=== PATIENT | male | born 1950 | race African-American/Black ===

== ENCOUNTER 2019-04-30 09:26 | Inpatient (IN) ==
[~2019-04-30 09:26] MED LIST: *HR* Etomidate 20 MG/10 ML AMPUL IVP ONE; *HR* Rocuronium Bromide 100 MG/10 ML VIAL IVC ONE
[2019-04-30] MEDS ORDERED: methylPREDNISolone 125 MG/2 ML VIAL IVP ONE (09:36)
[2019-04-30] MEDS ORDERED: Ipratropium/Albuterol Neb 3 ML IH ONE (09:36)
[2019-04-30] MEDS ORDERED: Ipratropium/Albuterol Neb 3 ML ONE (09:37)
[2019-04-30] MEDS ORDERED: *HR* LORazepam 2 MG/ML VIAL IVP ONE (09:39)
[2019-04-30] MEDS ORDERED: *HR* Labetalol 20 MG/4 ML SYRINGE IVP ONE (09:39)
--- NOTE | 2019-04-30 09:43 | Emergency Department Note ---
Disposition Clinical Impression: Hypertensive emergency, Pulmonary edema, Acute respiratory failure with hypoxia and hypercapnia Disposition: Admitted As Inpatient Condition: Critical Time of Disposition: 11:37 SOB HPI - General Chief Complaint: ED Shortness of Breath/Dyspnea Stated Complaint: ODILIA Time Seen by Provider: 04/30/19 09:29 Source: family, EMS Limitations: no limitations - History of Present Illness Patient is 69-year-old male presents to the emergency room via EMS for shortness of breath and apparently started this morning. The patient does have a history of asthma, history of CVA in the past. The patient does not wear oxygen at home. Patient denies any current pain, denies any headache chest pain or abdominal pain. The patient denies any back pain. The patient denies any recent other illness. The patient denies any leg swelling. However given the patient's dyspnea and significant respiratory distress, history of present illness and review of systems was extremely limited. - Related Data Home Medications Medication Instructions Recorded Confirmed Clopidogrel [Plavix] 75 mg PO DAILY 02/11/16 03/02/16 Amlodipine [Amlodipine Besylate] 10 mg PO DAILY 03/02/16 03/02/16 Previous Rx's Medication Instructions Recorded OxyCODONE/APAP 5/325 [Percocet 1 each PO Q6HR PRN #10 tablet 03/03/16 5/325 MG] Allergies Allergy/AdvReac Type Severity Reaction Status Date / Time No Known Allergies Allergy Verified 10/22/15 19:58 Review of Systems: As mentioned per HPI Limitations: ROS unobtainable due to patients medical condition (Secondary to significant shortness of breath and current critical history) Past Medical History - Past Medical History Medical history: Reports: asthma, hyperlipidemia, TIA, other Surgical history: Reports: carotid endarterectomy Psychiatric history: Reports: no psych history - Social History Smoking Status: Current every day smoker Smokeless Tobacco Status: No Alcohol use: Reports: heavy Drug use: Reports: marijuana Physical Exam PHYSICAL EXAM Constitutional: Well developed, Well nourished, moderate respiratory distress, Non-toxic appearance. HENT: Normocephalic, Atraumatic, Bilateral external ears normal, Oropharynx moist, No oral exudates, Nose normal. Neck- Normal range of motion, No tenderness, Supple. Eyes: PERRL, EOMI, Conjunctiva normal,. Cardiovascular: Tachycardic rate and regular rhythm without clicks, rubs, gallops or murmurs. Respiratory: Patient does have diminished breath sounds bilaterally, patient does have expiratory wheezes as well, there is evidence of scattered rhonchi on examination as well. Moderate respiratory distress is noted on examination. GI: Soft, nontender, no evidence of guarding or peritoneal signs. Bowel sounds are active. Musculoskeletal: Good range of motion in all major joints. No tenderness to palpation or major deformities noted. + Overall equal strength noted to the upper and lower extremities Integument: Diaphoretic, No erythema, No rash. No edema. Neurologic: Alert, Normal sensory function, No focal deficits noted. CN II-XII grossly intact. - General Limitations: no limitations General appearance: alert, in distress Course Vital Signs Temperature 97.6 F 04/30/19 09:31 Pulse Rate 126 04/30/19 09:31 Respiratory Rate 30 04/30/19 09:31 Blood Pressure 224/160 04/30/19 09:31 O2 Sat by Pulse Oximetry 88 04/30/19 09:31 Temperature 97.6 F 04/30/19 09:31 Pulse Rate 97 04/30/19 11:25 Respiratory Rate 20 04/30/19 11:31 Blood Pressure 193/149 04/30/19 11:25 O2 Sat by Pulse Oximetry 98 04/30/19 11:31 Oxygen Delivery Oxygen Delivery Ventilator Procedures - Intubation sedative: Etomidate paralytic: Rocuronium Laryngoscope: Jackson ET Tube Size: 8 ET Tube Uncuffed: Yes Tube Secured Depth (cm): 23 Tube Placement Confirmation: visualized tube passing through cords, equal breath sounds bilaterally, no breath sounds over epigastrium, confirmation by capnometry Patient Tolerated Procedure: well Shortness of Breath/Dyspnea - [facility] Narrative Medical decision making narrative: Patient did have EKG that showed evidence of sinus tachycardia 136 beats a minute, do not appreciate significant ST elevation or depression on EKG however there is significant artifact seen on EKG as well. MD and QT intervals do appear to be within normal limits. Interpreted by myself. Patient initially was tried on BiPAP, however he did fail this. The patient was given Ativan as well as labetalol here in the emergency room as well as magn esium. The patient does have significant hypertension arrival. I will further try to manage this hypertension, patient possibly could have hypertensive emergency with pulmonary edema. Patient did have a stat x-ray ordered as well as well as ABG. Patient had an ABG that showed evidence of significant hypoxia. The patient also has hypercarbia. The patient also is showing significant metabolic acidosis. Patient at this point in time was not doing well with the BiPAP therapy. The patient did receive IV labetalol. This did help his blood pressure significantly. The patient however I felt was significantly hypercarbic and that BiPAP therapy would not bridge this individual. The patient at this point in time was intubated. Patient was intubated with 60 mg of ocular name and 20 mg of etomidate. An ET tube was placed at 23 cm at the lip. A chest x-ray showed that the tube did need to be advanced however was otherwise in appropriate position. Patient's overall chest x-ray I believe shows evidence of pulmonary edema, a pneumonia however cannot be excluded. However given the patient's symptoms, not taking his blood pressure medications as well as his significant hypotension on arrival I felt the patient had more of a hypertensive emergency with pulmonary edema that was otherwise asymmetric. The patient after intubation did have an episode of bradycardia, his blood pressure also went more to a hypertensive state. The patient was started on IV fluids. However the patient proceeded to lose a pulse briefly here in the emergency room, CPR was instituted, within 3 minutes and first pulse check the patient had a pulse. The patient did receive 1 of epinephrine. The patient at this time has remained otherwise stable here in the emergency room, his blood pressure has started elevated, patient was placed on propofol here in the emergency room. Patient was also given vancomycin and Zosyn for possible pneumonia however I feel that this is more of a pulmonary edema type situation. The patient was also given IV Lasix. The case was discussed in detail with the furnace setter. The patient at this point in time was admitted to the ICU in otherwise critical but stable condition. I discussed the case with family on multiple occasions here in the emergency room as well. At this time the patient will be admitted to the ICU in critical condition. CRITICAL CARE TIME OF 65 MINUTES PERFORMING THIS INDIVIDUAL OUTSIDE OF SEPARATELY BILLABLE PROCEDURES. THIS INCLUDES BEDSIDE EVALUATION, INTERPRETATION OF EKG AND LAB TESTS AND CONSULTATIONS. Final impression 1. Hypertensive emergency 2. Acute respiratory failure with hypercarbia and hypoxia 3. Pulmonary edema - Lab Data Result diagrams: 04/30/19 09:33 07/17/19 09:33 Lab Results 04/30/19 04/30/19 04/30/19 Range/Units 09:33 09:33 09:33 WBC 5.1 (4.3-11.1) K/mcL RBC 4.95 (4.19-5.50) M/mcL Hgb 14.3 (12.9-16.9) g/dL Hct 47.0 (37.5-50.1) % MCV 94.9 (83.0-100.0) fL MCH 28.9 (28.0-33.3) pg MCHC 30.4 L (31.6-35.5) g/dL RDW 14.4 (11.5-14.5) % Plt Count 288 (140-400) K/mcL MPV 9.5 (9.4-12.4) fL Immature Gran % 0.4 (0-4) % Seg Neutrophils % 37.7 % Lymphocytes % 42.6 % Monocytes % 16.2 % Eosinophils % 2.3 % Basophils % 0.8 % Neutrophils # 1.9 (1.6-8.9) K/mcL Lymphocytes # 2.2 (0.6-4.6) K/mcL Monocytes # 0.8 (0.0-1.3) K/mcL Eosinophils # 0.1 (0.0-0.6) K/mcL Basophils # 0.0 (0.0-0.2) K/mcL Sample Site ABG pH (7.32-7.45) pH Units ABG pCO2 (35-45) mmHg ABG pO2 (85-104) mmHg ABG HCO3 (21-27) mEq/L ABG Total CO2 (20-26) mEq/L ABG O2 Saturation (95-98) % ABG Base Excess (-2 to 3) mEq/L Kain Test Respiration Rate O2 Delivery Device Blood Gas Modality Inspired O2 (1-15=lpm [id number]=%) Tidal Volume cc PEEP cm H2O Sodium 137 (136-145) mEq/L Potassium 3.8 (3.5-5.1) mEq/L Chloride 100 (98-107) mEq/L Carbon Dioxide 30 H (23-29) mEq/L BUN 17 (8-23) mg/dL Creatinine 1.04 (0.70-1.30) mg/dL Est GFR ( Amer) > 60 (> 60) Est GFR (Non-Af Amer) > 60 (> 60) BUN/Creatinine Ratio 16 (6-26) Glucose 192 H (70-105) mg/dL Calculated Osmolality 291 (280-300) Lactic Acid 2.0 (0.5-2.2) mmol/L Calcium 9.0 (8.6-10.3) mg/dL Troponin I 0.03 (< 0.04) ng/mL B-Natriuretic Peptide (Less than 100) pg/mL Person Notif of Crit 04/30/19 04/30/19 04/30/19 Range/Units 09:33 09:52 10:34 WBC (4.3-11.1) K/mcL RBC (4.19-5.50) M/mcL Hgb (12.9-16.9) g/dL Hct (37.5-50.1) % MCV (83.0-100.0) fL MCH (28.0-33.3) pg MCHC (31.6-35.5) g/dL RDW (11.5-14.5) % Plt Count (140-400) K/mcL MPV (9.4-12.4) fL Immature Gran % (0-4) % Seg Neutrophils % % Lymphocytes % % Monocytes % % Eosinophils % % Basophils % % Neutrophils # (1.6-8.9) K/mcL Lymphocytes # (0.6-4.6) K/mcL Monocytes # (0.0-1.3) K/mcL Eosinophils # (0.0-0.6) K/mcL Basophils # (0.0-0.2) K/mcL Sample Site R Radial ABG pH 7.00 L* 7.22 L D (7.32-7.45) pH Units ABG pCO2 122 H* 83 H* D (35-45) mmHg ABG pO2 85 289 H D (85-104) mmHg ABG HCO3 30 H 34 H (21-27) mEq/L ABG Total CO2 34 H 36 H (20-26) mEq/L ABG O2 Saturation 88 L 100 H (95-98) % ABG Base Excess -6 L 3 (-2 to 3) mEq/L Kain Test N/A Respiration Rate 20 O2 Delivery Device AeroMask Adult Vent Blood Gas Modality ASSIST CONTROL Inspired O2 60.0 100.0 (1-15=lpm [id number]=%) Tidal Volume 500 cc PEEP 0 cm H2O Sodium (136-145) mEq/L Potassium (3.5-5.1) mEq/L Chloride (98-107) mEq/L Carbon Dioxide (23-29) mEq/L BUN (8-23) mg/dL Creatinine (0.70-1.30) mg/dL Est GFR ( Amer) (> 60) Est GFR (Non-Af Amer) (> 60) BUN/Creatinine Ratio (6-26) Glucose (70-105) mg/dL Calculated Osmolality (280-300) Lactic Acid (0.5-2.2) mmol/L Calcium (8.6-10.3) mg/dL Troponin I (< 0.04) ng/mL B-Natriuretic Peptide 1071 H (Less than 100) pg/mL Person Notif of Crit dr prime dr xie Critical Care Time Critical Care Time: Yes Total Critical Care Time: 65 Attestation: Please see my note
[2019-04-30] MEDS: Furosemide 40 MG/4 ML VIAL IVP ONE ×2 (09:46→11:22)
[2019-04-30 10:04] LABS: ABG Base Excess -6 mEq/L (-2 to 3); ABG HCO3 30 mEq/L (21-27); ABG Oxygen Saturation 88 % (95-98); ABG PCO2 122 mmHg (35-45); ABG PO2 85 mmHg (85-104); ABG TCO2 34 mEq/L (20-26)
[2019-04-30] MEDS ORDERED: *HR* Etomidate 40 MG/20 ML VIAL IVP ONE (10:09)
[2019-04-30] MEDS ORDERED: *HR* Rocuronium Bromide 50 MG/5 ML VIAL IVP ONE (10:09)
[2019-04-30 10:18] LABS: Basophils % 0.8 %; Eosinophils # 0.1 K/mcL (0.0-0.6); Eosinophils % 2.3 %; Hemoglobin 14.3 g/dL (12.9-16.9); Immature Granulocytes % 0.4 % (0-4); Lymphocytes # 2.2 K/mcL (0.6-4.6); Lymphocytes % 42.6 %; Mean Corpuscular HGB Conc 30.4 g/dL (31.6-35.5); Mean Corpuscular Hemoglobin 28.9 pg (28.0-33.3); Mean Corpuscular Volume 94.9 fL (83.0-100.0); Mean Platelet Volume 9.5 fL (9.4-12.4); Monocytes # 0.8 K/mcL (0.0-1.3); Monocytes % 16.2 %; Neutrophils # 1.9 K/mcL (1.6-8.9); Platelet Count 288 K/mcL (140-400); Red Blood Count 4.95 M/mcL (4.19-5.50); Red Cell Distribution Width 14.4 % (11.5-14.5); Segmented Neutrophils % 37.7 %; White Blood Count 5.1 K/mcL (4.3-11.1)
[2019-04-30] MEDS ORDERED: 0.9 % Sodium Chloride 1,000 ML ONE (10:19)
[2019-04-30] MEDS ORDERED: *HR* Norepinephrine 4 MG/4 ML VIAL IVC ONE ×2 (10:23→15:07)
[2019-04-30] MEDS ORDERED: 0.9 % Sodium Chloride 250 ML ONE (10:23)
[2019-04-30 10:36] LABS: BUN/Creatinine Ratio 16 (6-26); Blood Urea Nitrogen 17 mg/dL (8-23); Carbon Dioxide 30 mEq/L (23-29); Chloride 100 mEq/L (98-107); Glucose 192 mg/dL (70-105); Osmolality,Calculated 291 (280-300); Potassium 3.8 mEq/L (3.5-5.1); Sodium 137 mEq/L (136-145); eGFR For African Americans > 60 (> 60); eGFR For Non-African Americans > 60 (> 60)
[2019-04-30 10:37] LABS: Troponin I 0.03 ng/mL (< 0.04)
[2019-04-30 10:39] LABS: ABG Base Excess 3 mEq/L (-2 to 3); ABG HCO3 34 mEq/L (21-27); ABG Oxygen Saturation 100 % (95-98); ABG PCO2 83 mmHg (35-45); ABG PH 7.22 pH Units (7.32-7.45); ABG PO2 289 mmHg (85-104); ABG TCO2 36 mEq/L (20-26); Blood Gas Modality ASSIST CONTROL; Blood Gas PEEP 0 cm H2O; Blood Gas VT 500 cc
[2019-04-30] MEDS ORDERED: *HR* Propofol 500 MG/50 ML BOTTLE IVP ONE (11:28)
[2019-04-30] MEDS ORDERED: Piperacillin/Tazobactam 3.375 GM in 0.9 % Sodium Chloride Mini Bag 100 ML IVPB ONE (11:31)
[2019-04-30] MEDS ORDERED: *HR* FentaNYL (PF) 100 MCG/2 ML VIAL ONE (11:49)
[2019-04-30] MEDS ORDERED: Naloxone 0.4 MG/ML INJ IVP PRN (11:50)
[2019-04-30] MEDS ORDERED: *HR* FentaNYL (PF) 100 MCG/2 ML VIAL IVP ONE (11:54)
--- NOTE | 2019-04-30 11:57 | Pulmonology History & Physical ---
Date of Encounter: 04/30/19 Time of Encounter: 11:57 History of Present Illness HPI: Mr. Hernández is a 69 year old male Past Med Surg Social Fam HX - Past Medical History Medical history: asthma, hyperlipidemia, TIA, other Additional medical history: SMOKER Psychiatric history: no psych history - Past Surgical History Surgical History: carotid endarterectomy - Social History Smoking Status: Current every day smoker Smokeless Tobacco Status: No Alcohol use: heavy Drug use: marijuana Medications and Allergies Clopidogrel [Plavix] 75 mg PO DAILY 02/11/16 [History] Amlodipine [Amlodipine Besylate] 10 mg PO DAILY 03/02/16 [History] OxyCODONE/APAP 5/325 [Percocet 5/325 MG] 1 each PO Q6HR PRN #10 tablet 03/03/16 [Rx] Allergy/AdvReac Type Severity Reaction Status Date / Time No Known Allergies Allergy Verified 10/22/15 19:58 ROS unobtainable: due to endotracheal tube, due to mental status All Systems: The remainder of the systems were reviewed and are negative Physical Examination Vital Signs: Vital Signs, Last 4 Hours Temp Pulse Resp BP Pulse Ox 04/30/19 11:31 20 98 04/30/19 11:25 97 20 193/149 98 04/30/19 10:40 86 180/123 100 04/30/19 10:33 93 185/123 04/30/19 10:28 89 130/75 04/30/19 10:12 20 100 04/30/19 09:55 30 83 04/30/19 09:51 107 123/93 04/30/19 09:50 122/100 04/30/19 09:36 224/160 04/30/19 09:31 97.6 F 126 30 224/160 88 Results - Laboratory Findings CBC and BMP: 04/30/19 09:33 04/30/19 09:33 ABG ABG pH 7.22 pH Units (7.32-7.45) L D 04/30/19 10:34 ABG pCO2 83 mmHg (35-45) H* D 04/30/19 10:34 ABG pO2 289 mmHg (85-104) H D 04/30/19 10:34 ABG O2 Saturation 100 % (95-98) H 04/30/19 10:34 Abnormal lab findings: Abnormal lab results MCHC 30.4 g/dL (31.6-35.5) L 04/30/19 09:33 ABG pH 7.22 pH Units (7.32-7.45) L D 04/30/19 10:34 ABG pCO2 83 mmHg (35-45) H* D 04/30/19 10:34 ABG pO2 289 mmHg (85-104) H D 04/30/19 10:34 ABG HCO3 34 mEq/L (21-27) H 04/30/19 10:34 ABG Total CO2 36 mEq/L (20-26) H 04/30/19 10:34 ABG O2 Saturation 100 % (95-98) H 04/30/19 10:34 ABG Base Excess -6 mEq/L (-2 to 3) L 04/30/19 09:52 Carbon Dioxide 30 mEq/L (23-29) H 04/30/19 09:33 Glucose 192 mg/dL (70-105) H 04/30/19 09:33 B-Natriuretic Peptide 1071 pg/mL (Less than 100) H 04/30/19 09:33
[2019-04-30] MEDS ORDERED: FentaNYL (PF) 1,000 MCG in 0.9 % Sodium Chloride 80 ML IVC SCH (12:00)
--- NOTE | 2019-04-30 12:21 | Pulmonology History & Physical ---
<Yola Mcdonough R - Last Filed: 04/30/19 16:42> Date of Encounter: 04/30/19 Time of Encounter: 12:19 Assessment and Plan (1) Sudden cardiac arrest Current visit: Yes Status: Acute Pt had episode of bradycardia and lost pulses in the ED after intubation One round of CPR was performed with epinephrine given Pt had ROSC and regained consciousness shortly thereafter Will obtain echo and repeat labwork including troponin, mag, phos, procal and lactic EKG did not show any signs of cardiac ischemia Likely secondary to his severe acidosis and from vagal stimulation during intubation (2) Hypertensive emergency Current visit: Yes Status: Acute Initial BP 224/160 CXR shows pulmonary edema Pt intubated due to severe acidosis with pH of 7, CO2 122, pO2 85 and HCO3 30 on 60%FiO2 Repeat ABG 30 minutes later improving with pH 7.22, CO2 83, pO2 289 and HCO3 34 Lasix given in ED for pulmonary edema Vanc and Zosyn ordered for pneumonia coverage but were not given due to no notable PNA on CXR, lack of symptoms and a negative lactic x2 with negative procal Pt given 25mg of Labetalol in the ED which caused his BP to drop to 165/121 Target BP is to maintain systolic below 160 for the next 24 hours Pt able to tolerate CPAP once woke up from sedation Extubated without difficulty and continues to do well off the vent (3) Acute respiratory failure with hypoxia and hypercapnia Current visit: Yes Status: Acute Likely secondary to pulmonary edema from HTN emergency Treatment as above (4) Pulmonary edema Current visit: Yes Status: Acute Likely secondary to HTN emergency Treatment as above Qualifiers: Chronicity: acute Qualified Code(s): J81.0 - Acute pulmonary edema (5) DVT prophylaxis Current visit: Yes Status: Acute EPCDs History of Present Illness HPI: Mr. Hernández is a 69 year old male who presented to the ED today with the complaint of ODILIA. He has a PMHx of asthma and TIA. On arrival he was found to be in severe respiratory distress and his initial BP was 224/160. The patient had a trial of BiPAP to help with his respiratory distress but ABG showed significant acidosis with hypoxia and hypercarbia and it was felt that BiPAP would not completely correct his degree of respiratory distress. The patient was then intubated without any significant difficulties. Shortly after intubation the patient became bradycardic and subsequently lost pulses. One round of CPR was performed with epinephrine given and once this round had stopped the patient had pulses again. Chest x-ray demonstrated severe pulmonary edema. Other significant labs include a BNP of 1071. The patient arrives to the ICU in stable condition and is waking up and following commands at this time. Past Med Surg Social Fam HX - Past Medical History Source: old records reviewed Medical history: asthma, hyperlipidemia, TIA, other Additional medical history: SMOKER Psychiatric history: no psych history - Past Surgical History Surgical History: carotid endarterectomy - Social History Smoking Status: Current every day smoker Smokeless Tobacco Status: No Alcohol use: heavy Drug use: marijuana Medications and Allergies No Known Home Drugs 05/01/19 [History] Allergy/AdvReac Type Severity Reaction Status Date / Time No Known Allergies Allergy Verified 05/01/19 08:11 ROS unobtainable: due to endotracheal tube All Systems: The remainder of the systems were reviewed and are negative Physical Examination Vital Signs: Vital Signs, Last 4 Hours Temp Pulse Resp BP Pulse Ox 04/30/19 12:00 97.7 F 86 21 165/121 98 04/30/19 11:31 20 98 04/30/19 11:25 97 20 193/149 98 04/30/19 10:40 86 180/123 100 04/30/19 10:33 93 185/123 04/30/19 10:28 89 130/75 04/30/19 10:12 20 100 04/30/19 09:55 30 83 04/30/19 09:51 107 123/93 04/30/19 09:50 122/100 04/30/19 09:36 224/160 04/30/19 09:31 97.6 F 126 30 224/160 88 General appearance: other (mildly sedated, follows commands) Eyes: nonicteric Effort: normal Auscultation: bilateral: rales Cardiovascular: regular rate and rhythm Gastrointestinal: soft, non-tender Integumentary: normal Extremities: no edema, pink and warm, pulses normal pupils equal and round Results - Laboratory Findings CBC and BMP: 04/30/19 09:33 04/30/19 09:33 ABG ABG pH 7.22 pH Units (7.32-7.45) L D 04/30/19 10:34 ABG pCO2 83 mmHg (35-45) H* D 04/30/19 10:34 ABG pO2 289 mmHg (85-104) H D 04/30/19 10:34 ABG O2 Saturation 100 % (95-98) H 04/30/19 10:34 Abnormal lab findings: Abnormal lab results MCHC 30.4 g/dL (31.6-35.5) L 04/30/19 09:33 ABG pH 7.22 pH Units (7.32-7.45) L D 04/30/19 10:34 ABG pCO2 83 mmHg (35-45) H* D 04/30/19 10:34 ABG pO2 289 mmHg (85-104) H D 04/30/19 10:34 ABG HCO3 34 mEq/L (21-27) H 04/30/19 10:34 ABG Total CO2 36 mEq/L (20-26) H 04/30/19 10:34 ABG O2 Saturation 100 % (95-98) H 04/30/19 10:34 ABG Base Excess -6 mEq/L (-2 to 3) L 04/30/19 09:52 Carbon Dioxide 30 mEq/L (23-29) H 04/30/19 09:33 Glucose 192 mg/dL (70-105) H 04/30/19 09:33 POC Glucose 138 mg/dL (70-99) H 04/30/19 11:47 B-Natriuretic Peptide 1071 pg/mL (Less than 100) H 04/30/19 09:33 <Solitario Evans M - Last Filed: 05/02/19 23:15> Date of Encounter: 04/30/19 History of Present Illness HPI: Mr. Hernández is a 69 year old male All Systems: The remainder of the systems were reviewed and are negative Physical Examination Vital Signs: Vital Signs, Last 4 Hours Temp Pulse Resp BP Pulse Ox 04/30/19 15:35 18 94 04/30/19 15:05 103 18 125/100 92 04/30/19 15:00 93 18 125/100 92 04/30/19 14:00 92 20 110/80 100 04/30/19 13:00 91 20 65/54 100 04/30/19 12:00 97.7 F 92 20 165/121 99 Results - Laboratory Findings CBC and BMP: 05/01/19 04:39 05/01/19 04:39 ABG ABG pH 7.32 pH Units (7.32-7.45) 04/30/19 12:35 ABG pCO2 56 mmHg (35-45) H D 04/30/19 12:35 ABG pO2 80 mmHg (85-104) L D 04/30/19 12:35 ABG O2 Saturation 94 % (95-98) L 04/30/19 12:35 Abnormal lab findings: Abnormal lab results MCHC 30.4 g/dL (31.6-35.5) L 04/30/19 09:33 ABG pH 7.22 pH Units (7.32-7.45) L D 04/30/19 10:34 ABG pCO2 56 mmHg (35-45) H D 04/30/19 12:35 ABG pO2 80 mmHg (85-104) L D 04/30/19 12:35 ABG HCO3 29 mEq/L (21-27) H 04/30/19 12:35 ABG Total CO2 31 mEq/L (20-26) H 04/30/19 12:35 ABG O2 Saturation 94 % (95-98) L 04/30/19 12:35 ABG Base Excess -6 mEq/L (-2 to 3) L 04/30/19 09:52 Carbon Dioxide 30 mEq/L (23-29) H 04/30/19 09:33 Glucose 192 mg/dL (70-105) H 04/30/19 09:33 POC Glucose 138 mg/dL (70-99) H 04/30/19 11:47 Phosphorus 4.7 mg/dL (2.7-4.5) H 04/30/19 09:33 B-Natriuretic Peptide 1071 pg/mL (Less than 100) H 04/30/19 09:33 Globulin 5.0 g/dL (2.4-3.5) H 04/30/19 09:33 Albumin/Globulin Ratio 0.7 (1.1-2.2) L 04/30/19 09:33 - Attending Attestation I examined this patient and my medical decision-making was reviewed with the Resident Physician. I agree with the documented findings, disposition and treatment plan as described except to the extent set forth below. Patient seen and examined. I was called by infectious disease physician regarding this patient and patient was intubated and he had cardiac arrest after intubation. Labs, radiology, chart personally reviewed. 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 Pulmonary: Acceptable oxygenation and ventilation. Reviewed his ABG with some improvement in the respiratory acidosis. Family at the bedside and he has significant history of smoking that I think he could have AECOPD and he will be treated with bronchodilators and for AECOPD. I feel this patient can be extubated and I checked his vent setting and he has some evidence of PEEPi. I have told respiratory therapist to attempt SBT and if able to extubated, then that what we will do. Reviewed his CXR and has evidence of emphysema. He will need outpatie work up. He may need nicotine patch and obviously smoking cessation. Cardiovascular: Patient with hypertensive emergency and evidence of pulmonary edema. Will treat patient for his HTN and I suspect he has uncontrolled HTN. WIll target SBP around 160 . Will resume his home oral medication when able to eat. Patient will be on Cardene drip to control BP. GI: Nutrition per dietary and GI prophylaxis per routine Heme: DVT prophylaxis per routine ID: Stop all the antibiotics. This is most likely pulmonary edema. Renal; urine out put and renal function reviewed Endorcine: blood glucose is monitored Lines: all lines checked and no evidence of infections Skin: skin care to prevent pressure ulcers per nursing routine care Dispo: ICU for now. Code: Full. Prognosis.Fair and guarded and discussed with family at the bedside. I spent 60 min of Critical Care time with this patient. It involved decision making of high complexity to assess, manipulate, and support vital organ system failure and/or to prevent further life threatening deterioration of the patient's condition. The time involved in the performance of separately reportable procedures was not counted toward critical care time.
[2019-04-30] MEDS ORDERED: Artificial Tears SOLN 15 ML BOTTLE BOTH EYES PRN (12:31)
[2019-04-30 12:38] LABS: ABG Base Excess 1 mEq/L (-2 to 3); ABG HCO3 29 mEq/L (21-27); ABG Oxygen Saturation 94 % (95-98); ABG PCO2 56 mmHg (35-45); ABG PH 7.32 pH Units (7.32-7.45); ABG PO2 80 mmHg (85-104); ABG TCO2 31 mEq/L (20-26); Blood Gas PEEP 0 cm H2O; Blood Gas VT 500 cc
[2019-04-30] MEDS ORDERED: Haloperidol Lactate 5 MG/ML VIAL IM PRN (12:55)
[2019-04-30 13:32] LABS: Alanine Aminotransferase 12 Units/L (7-52); Albumin 3.7 g/dL (3.5-5.7); Albumin/Globulin Ratio 0.7 (1.1-2.2); Alkaline Phosphatase 71 Units/L (34-104); Aspartate Amino Transferase 24 Units/L (13-39); Bilirubin,Direct 0.1 mg/dL (0.0-0.2); Bilirubin,Indirect 0.4 mg/dL (0.0-1.2); Bilirubin,Total 0.5 mg/dL (0.3-1.0); Magnesium 1.8 mg/dL (1.6-2.6); Phosphorous 4.7 mg/dL (2.7-4.5); Total Protein 8.7 g/dL (6.4-8.9)
[2019-04-30] MEDS ORDERED: Aminoglycoside Consult 1 EACH MC ONE (14:01)
[2019-04-30] MEDS ORDERED: D5% in Water 250 ML IV BAG IV ONE (15:07)
[2019-04-30] MEDS ORDERED: *HR* EPINEPHrine 1 MG/10 ML SYRINGE IVP ONE (15:07)
[2019-04-30] MEDS ORDERED: Artificial Tears SOLN 15 ML BOTTLE BOTH EYES SCH (16:00)
[2019-04-30] MEDS: niCARdipine 20 MG in 0.9 % Sodium Chloride 192 ML IVC SCH ×4 (17:45→22:08)
[2019-04-30] MEDS ORDERED: Chlorhexidine Rinse 15 ML MOUTHWASH MM SCH (21:00)
[2019-04-30] MEDS ORDERED: Acetaminophen 325 MG TABLET PO PRN (22:13)
[2019-05-01 05:00] LABS: Hematocrit 40.3 % (37.5-50.1); Immature Granulocytes % 0.2 % (0-4); Lymphocytes # 0.5 K/mcL (0.6-4.6); Lymphocytes % 12.1 %; Mean Corpuscular HGB Conc 32.3 g/dL (31.6-35.5); Mean Corpuscular Hemoglobin 29.3 pg (28.0-33.3); Mean Corpuscular Volume 90.8 fL (83.0-100.0); Mean Platelet Volume 9.6 fL (9.4-12.4); Monocytes # 0.4 K/mcL (0.0-1.3); Monocytes % 9.7 %; Neutrophils # 3.2 K/mcL (1.6-8.9); Platelet Count 213 K/mcL (140-400); Red Blood Count 4.44 M/mcL (4.19-5.50); Red Cell Distribution Width 13.8 % (11.5-14.5); White Blood Count 4.1 K/mcL (4.3-11.1)
[2019-05-01] MEDS: niCARdipine 20 MG in 0.9 % Sodium Chloride 192 ML IVC SCH (05:02)
[2019-05-01 05:19] LABS: Alanine Aminotransferase 17 Units/L (7-52); Albumin 3.5 g/dL (3.5-5.7); Albumin/Globulin Ratio 0.9 (1.1-2.2); Alkaline Phosphatase 61 Units/L (34-104); Aspartate Amino Transferase 27 Units/L (13-39); BUN/Creatinine Ratio 22 (6-26); Bilirubin,Total 0.5 mg/dL (0.3-1.0); Blood Urea Nitrogen 19 mg/dL (8-23); Calcium 8.4 mg/dL (8.6-10.3); Carbon Dioxide 27 mEq/L (23-29); Chloride 99 mEq/L (98-107); Glucose 113 mg/dL (70-105); Osmolality,Calculated 281 (280-300); Potassium 3.9 mEq/L (3.5-5.1); Sodium 134 mEq/L (136-145); Total Protein 7.5 g/dL (6.4-8.9); eGFR For African Americans > 60 (> 60); eGFR For Non-African Americans > 60 (> 60)
--- NOTE | 2019-05-01 06:39 | Pulmonology Progress Note ---
<CeasarYola R - Last Filed: 05/01/19 10:40> Date of Encounter: 05/01/19 Time of Encounter: 06:39 Assessment and Plan (1) Sudden cardiac arrest Current Visit: Yes Status: Acute Pt had episode of bradycardia and lost pulses in the ED after intubation One round of CPR was performed with epinephrine given Pt had ROSC and regained consciousness shortly thereafter Will obtain echo and repeat labwork including troponin, mag, phos, procal and lactic EKG did not show any signs of acute cardiac ischemia Likely secondary to his severe acidosis and from vagal stimulation during intubation Echo report read 05/01 shows an EF of 40-45% with right wall motion abnormality and moderate MR. He does not have a previous echo on file (2) Hypertensive emergency Current Visit: Yes Status: Acute Initial BP 224/160 CXR shows pulmonary edema Pt intubated due to severe acidosis with pH of 7, CO2 122, pO2 85 and HCO3 30 on 60%FiO2 Repeat ABG 30 minutes later improving with pH 7.22, CO2 83, pO2 289 and HCO3 34 Lasix given in ED for pulmonary edema Vanc and Zosyn ordered for pneumonia coverage but were not given due to no notable PNA on CXR, lack of symptoms and a negative lactic x2 with negative procal Pt given 25mg of Labetalol in the ED which caused his BP to drop to 165/121 Target BP is to maintain systolic below 160 for the next 24 hours Pt able to tolerate CPAP once woke up from sedation Extubated without difficulty and continues to do well off the vent Cardene drip was added overnight to control BP and keep systolic below 160 Pt required very little cardene (2.5/hr) therefore we will restart home meds and DC the cardene drip PRN lopressor has been added due to the patients tachycardia 20mg lasix has been added for the pts pulmonary edema (3) Acute respiratory failure with hypoxia and hypercapnia Current Visit: Yes Status: Acute Likely secondary to pulmonary edema from HTN emergency Treatment as above (4) Pulmonary edema Current Visit: Yes Status: Acute Likely secondary to HTN emergency Treatment as above Qualifiers: Chronicity: acute Qualified Code(s): J81.0 - Acute pulmonary edema (5) Elevated troponin Current Visit: Yes Status: Acute Pt intial trop wnl After CPR pt had troponin of 0.1, followed by 0.06 No EKG changes consistent with cardiac ischemia Pt denies chest pain Likely secondary to CPR (6) COPD exacerbation Current Visit: Yes Status: Acute Pt with respiratory failure in ED Initially intubated but has tolerated extubation well overnight without need for supplemental oxygen 125mg IV solu-medrol given in ED Will continue steroid burst with 40mg prednison po qd for 5 days Duonebs ordered q4H prn (7) DVT prophylaxis Current Visit: Yes Status: Acute EPCDs Subjective Interval history: Pt tolerated extubation yesterday and bp remained below 160 with low dose cardene drip overnight. He did have 2 mildly elevated troponins but underwent one round of CPR in the ED and it is likely from this - pt denies chest pain and did not have EKG changes. Pt will be switched to his home dose of amlodipine with a prn order for lopressor due to his tachycardia. Pt will also have prn albuterol and a prednisone burst of 40mg po qd for 5 days for suspected COPD exacerbation. Pt has tolerated eating and will be transferred out of the ICU today. Spoke with admitting hospitalist Dr. Hui who was made aware of the patient's transfer. Objective PUL Vital signs: Last Vital Signs Temp 96.8 F L 05/01/19 02:55 Pulse 98 05/01/19 06:00 Resp 20 05/01/19 06:00 BP 140/91 05/01/19 06:00 Pulse Ox 95 05/01/19 06:00 General appearance: no acute distress, alert Eyes: nonicteric Effort: normal Auscultation: bilateral: wheezes Cardiovascular: regular rate and rhythm Gastrointestinal: soft, non-tender Integumentary: normal Extremities: no cyanosis, no edema, pink and warm, pulses normal normal mental status, non-focal exam, pupils equal and round mood appropriate, affect normal Results - Laboratory Findings CBC and BMP: 05/01/19 04:39 05/01/19 04:39 ABG ABG pH 7.32 pH Units (7.32-7.45) 04/30/19 12:35 ABG pCO2 56 mmHg (35-45) H D 04/30/19 12:35 ABG pO2 80 mmHg (85-104) L D 04/30/19 12:35 ABG O2 Saturation 94 % (95-98) L 04/30/19 12:35 Abnormal lab findings: Abnormal lab results WBC 4.1 K/mcL (4.3-11.1) L 05/01/19 04:39 MCHC 30.4 g/dL (31.6-35.5) L 04/30/19 09:33 Lymphocytes # 0.5 K/mcL (0.6-4.6) L 05/01/19 04:39 ABG pH 7.22 pH Units (7.32-7.45) L D 04/30/19 10:34 ABG pCO2 56 mmHg (35-45) H D 04/30/19 12:35 ABG pO2 80 mmHg (85-104) L D 04/30/19 12:35 ABG HCO3 29 mEq/L (21-27) H 04/30/19 12:35 ABG Total CO2 31 mEq/L (20-26) H 04/30/19 12:35 ABG O2 Saturation 94 % (95-98) L 04/30/19 12:35 ABG Base Excess -6 mEq/L (-2 to 3) L 04/30/19 09:52 Sodium 134 mEq/L (136-145) L 05/01/19 04:39 Carbon Dioxide 30 mEq/L (23-29) H 04/30/19 09:33 Glucose 113 mg/dL (70-105) H 05/01/19 04:39 POC Glucose 138 mg/dL (70-99) H 04/30/19 11:47 Calcium 8.4 mg/dL (8.6-10.3) L 05/01/19 04:39 Phosphorus 4.7 mg/dL (2.7-4.5) H 04/30/19 09:33 Troponin I 0.06 ng/mL (< 0.04) H* 04/30/19 21:53 B-Natriuretic Peptide 1071 pg/mL (Less than 100) H 04/30/19 09:33 Globulin 4.0 g/dL (2.4-3.5) H 05/01/19 04:39 Albumin/Globulin Ratio 0.9 (1.1-2.2) L 05/01/19 04:39 - Microbiology Findings Microbiology Findings: Microbiology, Last 48 Hours 04/30/19 10:47 Blood Culture - Preliminary Peripheral Venipuncture Culture is incubating and being continuously monitored for growth. Final report to follow. 04/30/19 09:33 Blood Culture - Preliminary Peripheral Venipuncture Culture is incubating and being continuously monitored for growth. Final report to follow. - Clinical Findings Intake & Output: Intake & Output 04/30/19 04/30/19 05/01/19 15:59 23:59 07:59 Intake Total 182 / 395 213 / 395 187 / 187 Output Total 1250 / 1250 Balance 182 / -855 -1037 / -855 187 / 187 Weight 67.9 kg Consult Discharge Plan - Plan Referrals: Kalyani Vidal, GRAIN DISTRIBUTOR [Primary Care Provider] - <Solitario Evans - Last Filed: 05/03/19 01:09> Date of Encounter: 05/01/19 Objective PUL Vital signs: Last Vital Signs Temp 98.2 F 05/01/19 07:35 Pulse 100 05/01/19 08:00 Resp 20 05/01/19 08:00 BP 149/103 05/01/19 08:00 Pulse Ox 95 05/01/19 08:00 Results - Laboratory Findings CBC and BMP: 05/01/19 04:39 05/01/19 04:39 ABG ABG pH 7.32 pH Units (7.32-7.45) 04/30/19 12:35 ABG pCO2 56 mmHg (35-45) H D 04/30/19 12:35 ABG pO2 80 mmHg (85-104) L D 04/30/19 12:35 ABG O2 Saturation 94 % (95-98) L 04/30/19 12:35 Abnormal lab findings: Abnormal lab results WBC 4.1 K/mcL (4.3-11.1) L 05/01/19 04:39 MCHC 30.4 g/dL (31.6-35.5) L 04/30/19 09:33 Lymphocytes # 0.5 K/mcL (0.6-4.6) L 05/01/19 04:39 ABG pH 7.22 pH Units (7.32-7.45) L D 04/30/19 10:34 ABG pCO2 56 mmHg (35-45) H D 04/30/19 12:35 ABG pO2 80 mmHg (85-104) L D 04/30/19 12:35 ABG HCO3 29 mEq/L (21-27) H 04/30/19 12:35 ABG Total CO2 31 mEq/L (20-26) H 04/30/19 12:35 ABG O2 Saturation 94 % (95-98) L 04/30/19 12:35 ABG Base Excess -6 mEq/L (-2 to 3) L 04/30/19 09:52 Sodium 134 mEq/L (136-145) L 05/01/19 04:39 Carbon Dioxide 30 mEq/L (23-29) H 04/30/19 09:33 Glucose 113 mg/dL (70-105) H 05/01/19 04:39 POC Glucose 138 mg/dL (70-99) H 04/30/19 11:47 Calcium 8.4 mg/dL (8.6-10.3) L 05/01/19 04:39 Phosphorus 4.7 mg/dL (2.7-4.5) H 04/30/19 09:33 Troponin I 0.06 ng/mL (< 0.04) H* 04/30/19 21:53 B-Natriuretic Peptide 1071 pg/mL (Less than 100) H 04/30/19 09:33 Globulin 4.0 g/dL (2.4-3.5) H 05/01/19 04:39 Albumin/Globulin Ratio 0.9 (1.1-2.2) L 05/01/19 04:39 - Microbiology Findings Microbiology Findings: Microbiology, Last 48 Hours 04/30/19 10:47 Blood Culture - Preliminary Peripheral Venipuncture Culture is incubating and being continuously monitored for growth. Final report to follow. 04/30/19 09:33 Blood Culture - Preliminary Peripheral Venipuncture Culture is incubating and being continuously monitored for growth. Final report to follow. - Clinical Findings Intake & Output: Intake & Output 04/30/19 05/01/19 05/01/19 23:59 07:59 15:59 Intake Total 213 / 395 237 / 597 360 / 597 Output Total 1250 / 1250 250 / 250 Balance -1037 / -855 -13 / 347 360 / 347 - Attending Attestation I examined this patient and my medical decision-making was reviewed with the Resident Physician. I agree with the documented findings, disposition and treatment plan as described except to the extent set forth below. Patient seen and examined. Labs, radiology, chart personally reviewed. Agree with resident's history and physical, assessment, plan with following comments: COUNTER PROFESSIONAL: Patient follows commands, Pulmonary: Acceptable oxygenation and ventilation and treat for AECOPD with systemic steroid and bronchodilators and he will need outpatient follow up and work up for COPD. He will benefit from pulm rehab. Cardiovascular: stable and BP is better now and cardiology is consult. BP needs to be controlled. GI: Nutrition per dietary and GI prophylaxis per routine Heme: DVT prophylaxis per routine ID: Continue antibiotics and plan to de-escalation Renal; urine out put and renal function reviewed. Start diuretic Endorcine: blood glucose is monitored Lines: all lines checked and no evidence of infections Skin: skin care to prevent pressure ulcers per nursing routine care Dispo:transfer to floor Code: Full. [email or web address] Discussed with family at the beside. Please call for any questions.
[2019-05-01] MEDS ORDERED: *HR* Metoprolol 5 MG/5 ML VIAL IVP PRN ×2 (07:23→10:09)
[2019-05-01] MEDS ORDERED: Ipratropium/Albuterol Neb 3 ML IH PRN ×2 (07:23→10:09)
[2019-05-01] MEDS ORDERED: amLODIPine 5 MG TABLET PO SCH (09:00)
[2019-05-01] MEDS ORDERED: predniSONE 20 MG TABLET PO SCH (09:00)
[2019-05-01] MEDS ORDERED: Budesonide/Formoterol 160/4.5 1 PUFF INH IH SCH (10:00)
[2019-05-01] MEDS ORDERED: Piperacillin/Tazobactam 3.375 GM in 0.9 % Sodium Chloride Mini Bag 100 ML IVPB ONE (10:09)
[2019-05-01] MEDS ORDERED: Naloxone 0.4 MG/ML INJ IVP PRN (10:09)
[2019-05-01] MEDS: Furosemide 20 MG TABLET PO SCH (11:43)
[2019-05-01 12:14] LABS: Acinetobacter baumannii by PCR Not Detected (Not Detect); Candida albicans by PCR Not Detected (Not Detect); Candida glabrata by PCR Not Detected (Not Detect); Candida krusei by PCR Not Detected (Not Detect); Candida parapsilosis by PCR Not Detected (Not Detect); Candida tropicalis by PCR Not Detected (Not Detect); Enterobacter cloacae Cmplx PCR Not Detected (Not Detect); Enterobacteriaceae by PCR Not Detected (Not Detect); Enterococcus by PCR Not Detected (Not Detect); Escherichia coli by PCR Not Detected (Not Detect); Klebsiella oxytoca by PCR Not Detected (Not Detect); Klebsiella pneumoniae by PCR Not Detected (Not Detect); Proteus by PCR Not Detected (Not Detect); Pseudomonas aeruginosa by PCR Not Detected (Not Detect); Serratia marcescens by PCR Not Detected (Not Detect); Staphylococcus aureus by PCR Not Detected (Not Detect); Staphylococcus by PCR DETECTED (Not Detect); Streptococcus agalactiae(B)PCR Not Detected (Not Detect); Streptococcus by PCR Not Detected (Not Detect); Streptococcus pneumoniae PCR Not Detected (Not Detect); Streptococcus pyogenes (A) PCR Not Detected (Not Detect); mecA Methicillin-Resist Gene DETECTED (Not Detect)
--- NOTE | 2019-05-01 13:10 | Cardiology Consult Note ---
<Yung Marcelo - Last Filed: 05/01/19 14:37> Date of Encounter: 05/01/19 Time of Encounter: 13:06 Assessment and Plan (1) Sudden cardiac arrest Current Visit: Yes Status: Acute - Patient initially presented with shortness of breath with hypoxia - Was first placed on BiPAP, but was intubated after ABG demonstrated severe acidosis - After intubation, patient lost a pulse, and one round of CPR was performed; subsequently had ROSC - Was transferred to ICU for further management and observation - Troponin levels have been as follows: 0.03, 0.10, 0.06 - TTE demonstrated EF of 40-45% with moderate to severe MR; no previous echo on file - Patient is unsure if he has ever had an ischemic workup before; no prior records and ischemic workup are on file - No known history of coronary artery disease - During interview, denies chest pain or shortness of breath Plan: - Continuous telemetry - Currently receiving by mouth Lasix 20 mg for pulmonary edema - Plan is for [facility] tomorrow; will keep patient NPO at midnight (2) Elevated troponin Current Visit: Yes Status: Acute - Troponin on arrival was within normal limits - After patient developed sudden cardiac arrest and underwent a round of CPR, subsequent troponin levels were 0.10 and 0.06 - EKG obtained did not show any signs of ischemia - [facility] tomorrow as documented above (3) Hypertensive emergency Current Visit: Yes Status: Acute - Patient presented with a blood pressure of 224/160 - He was initially given a dose of labetalol in the emergency department, and was subsequently placed on a Cardene drip - Blood pressure today is 145/103 - Management per primary team Discussion w patient/family: The assessment and plan as outlined above was discussed with the patient and/or family members who expressed understanding and agreement. All questions were answered. Thank you for involving us in the care of your patient. Please call with any questions. History of Present Illness Consult date: 05/01/19 Consult reason: Cardiac arrest, elevated troponin History of present illness: Mr. Hernández is a 69 year old male with a PMH of asthma, HLD, and TIA who presented to [facility] ED on 04/30/19 complaining of shortness of breath. Was found to be in severe respiratory distress on arrival. Review of systems on arrival was limited due to his severe respiratory distress. Vital signs on arrival were significant for a heart rate of 126, respiratory rate of 30, and elevated blood pressure at 224/160. Patient was satting at 88% on 6 L of oxygen. He was started on BiPAP, which improved his symptoms. EKG showed sinus tachycardia without evidence of significant ST elevation or depression. He was given IV labetalol for his blood pressure. An ABG showed significant acidosis. Due to this, patient was intubated. After intubation, patient became bradycardic and lost pulses. One round of CPR was performed with epinephrine given. After this, patient had ROSC. CXR demonstrated significant pulmonary edema. He was transferred to the ICU for further management. He was given IV Lasix, as well as vancomycin and Zosyn for possible pneumonia. Patient was subsequently extubated without difficulty. He was started on a Cardene drip for blood pressure control. Today, he is on supplemental oxygen via nasal cannula. He was given Solu-Medrol 125 IV in the emergency department, and was subsequently started on a steroid burst of 40 mg prednisone orally. Troponin levels were 0.03, 0.10, and 0.06. Echocardiogram demonstrated EF of 40-45%, moderate segmental LV systolic dysfunction, moderate to severe mitral regurgitation, mild LV diastolic dysfunction, mild TR. The cardiology service is consulted for abnormal echocardiogram in the setting of an episode of loss of pulse. During interview, patient states that he is feeling well today. He denies shortness of breath or chest pain. He is currently satting well on supplemental oxygen. Physical exam shows mild bibasilar crackles with a prolonged expiratory phase, but no wheezes or rhonchi. Plan is for [facility] tomorrow; will keep patient NPO at midnight. Past Med Surg Social Fam HX - Past Medical History Medical history: asthma, hyperlipidemia, TIA, other Additional medical history: SMOKER Psychiatric history: no psych history - Past Surgical History Surgical History: carotid endarterectomy - Social History Smoking Status: Current every day smoker Smokeless Tobacco Status: No Alcohol use: heavy Drug use: marijuana Medications and Allergies No Known Home Drugs 05/01/19 [History] Allergy/AdvReac Type Severity Reaction Status Date / Time No Known Allergies Allergy Verified 05/01/19 08:11 All Systems Review: The remainder of the systems were reviewed and are negative - Constitutional Constitutional: no chills, no fever(s) - Cardiovascular Cardiovascular: no chest pain at rest, no chest pain with exertion, no dyspnea at rest, no dyspnea on exertion, no irregular heart rhythm, no palpitations Physical Examination Vital Signs, Last 4 Hours Temp Pulse Resp BP Pulse Ox 05/01/19 12:38 98.2 F 05/01/19 12:00 100 20 145/103 95 General: Conversant, No Apparent Distress, Other (Thin ) HEENT: Atraumatic, Normocephaly, Mucus Membranes Moist Neck: No JVD, Normal carotid pulses Cardiac: Reg Rate and Rhythm, Normal S1 and S2, No Murmur Lungs: Other (Bibasilar crackles, prolonged expiratory phase) Neuro: Alert and responsive, No focal deficits noted Abdomen: Soft, Non-Tender Skin: No rashes noted on visualized skin Musculoskeletal: No Chest Wall Tenderness Extremities: No Clubbing, No Cyanosis, No Edema, Normal Pulses Results 05/01/19 04:39 05/01/19 04:39 Lab Results 04/30/19 04/30/19 04/30/19 09:33 16:03 21:53 WBC Hgb Hct Plt Count Sodium 137 Potassium 3.8 Chloride 100 Carbon Dioxide 30 H BUN 17 Creatinine 1.04 Glucose 192 H Calcium 9.0 Magnesium 1.8 Total Bilirubin 0.5 AST 24 ALT 12 Alkaline Phosphatase 71 Troponin I 0.03 0.10 H* 0.06 H* 05/01/19 05/01/19 05/01/19 04:39 04:39 04:39 WBC 4.1 L Hgb 13.0 Hct 40.3 Plt Count 213 Sodium 134 L Potassium 3.9 Chloride 99 Carbon Dioxide 27 BUN 19 Creatinine 0.85 Glucose 113 H Calcium 8.4 L Magnesium 1.6 Total Bilirubin 0.5 AST 27 ALT 17 Alkaline Phosphatase 61 Troponin I Consult Discharge Plan - Plan Referrals: Kalyani Vidal, TRUCK BENCH MECHANIC [Primary Care Provider] - <Clint Meadows - Last Filed: 05/01/19 14:51> Date of Encounter: 05/01/19 - Attending Attestation I examined this patient and my medical decision-making was reviewed with the Resident Physician. I agree with the documented findings, disposition and treatment plan as described except to the extent set forth below. 69-year-old male presents with pulmonary edema status post intubation currently extubated doing well complained of progressive exertional shortness of breath Aggressive risk stratification setting of multiple cardiac risk factors including diabetes with [facility] Episode Of asystole but no documentation to review Assessment and Plan Discussion w patient/family: The assessment and plan as outlined above was discussed with the patient and/or family members who expressed understanding and agreement. All questions were answered. Thank you for involving us in the care of your patient. Please call with any questions. History of Present Illness History of present illness: Mr. Hernández is a 69 year old male All Systems Review: The remainder of the systems were reviewed and are negative Physical Examination Vital Signs, Last 4 Hours Temp Pulse Resp BP Pulse Ox 05/01/19 14:00 89 20 140/94 95 05/01/19 12:38 98.2 F 05/01/19 12:00 100 20 145/103 95 Results 05/01/19 04:39 05/01/19 04:39 Lab Results 04/30/19 04/30/19 05/01/19 16:03 21:53 04:39 WBC 4.1 L Hgb 13.0 Hct 40.3 Plt Count 213 Sodium Potassium Chloride Carbon Dioxide BUN Creatinine Glucose Calcium Magnesium Total Bilirubin AST ALT Alkaline Phosphatase Troponin I 0.10 H* 0.06 H* 05/01/19 05/01/19 04:39 04:39 WBC Hgb Hct Plt Count Sodium 134 L Potassium 3.9 Chloride 99 Carbon Dioxide 27 BUN 19 Creatinine 0.85 Glucose 113 H Calcium 8.4 L Magnesium 1.6 Total Bilirubin 0.5 AST 27 ALT 17 Alkaline Phosphatase 61 Troponin I
--- NOTE | 2019-05-01 14:49 | Electrocardiograph Report ---
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
[2019-05-01] MEDS: Nicotine 21 MG PATCH.TD24 TD SCH (19:35)
[2019-05-01] MEDS: Acetaminophen 325 MG TABLET PO PRN (20:10)
[2019-05-01] MEDS: Budesonide/Formoterol 160/4.5 1 PUFF INH IH SCH (20:26)
[2019-05-02] MEDS: Budesonide/Formoterol 160/4.5 1 PUFF INH IH SCH ×2 (08:03→20:21)
[2019-05-02] MEDS: predniSONE 20 MG TABLET PO SCH (08:33)
[2019-05-02] MEDS: amLODIPine 5 MG TABLET PO SCH (08:33)
[2019-05-02] MEDS: Furosemide 20 MG TABLET PO SCH ×2 (08:39→15:17)
--- NOTE | 2019-05-02 10:22 | Internal Med Progress Note ---
Hospitalist Progress Note - Encounter Date of Encounter: 05/02/19 Time of Encounter: 10:20 - Subjective Interval History: She was seen and examined. Feels better. On 2 L nasal cannula oxygen. Patient was admitted with acute hypoxic and hypercarbic respiratory failure. Needed intubation and was being treated for COPD exacerbation as well as pulmonary edema from acute exacerbation of combined heart failure. Patient was noted to have an EF of 40-45% with moderate to severe mitral regurgitation. Patient went into cardiac arrest and needed one round of CPR and epinephrine. Due to the sudden cardiac postintubation and new EF 45% with mild elevated troponins, cardiology were consulted and plan on doing left heart catheterization - Exam Vitals: Temp Pulse Resp BP Pulse Ox 97.4 F L 72 16 160/109 92 05/02/19 08:30 05/02/19 08:30 05/02/19 08:30 05/02/19 08:30 05/02/19 08:30 Exam: GEN: NAD CVS: RRR. S1, S2, No m/r/g RESP: CTAB ABD: Soft, NT, ND, +BS EXT: No edema. 2+ DP. No rashes NEURO: Nonfocal - Assessment and Plan (1) Acute respiratory failure with hypoxia and hypercapnia Current Visit: Yes Status: Acute Assessment and Plan: Due to CHF exacerbation as well as COPD exacerbation. Treatment underlying causes as below. Nebs. O2 support. (2) Acute exacerbation of CHF (congestive heart failure) Current Visit: Yes Status: Acute Assessment and Plan: This is combined systolic and so. Seems to be euvolemic now. On Lasix 20 mg daily. (3) COPD exacerbation Current Visit: Yes Status: Acute Assessment and Plan: Continue prednisone. We will start tapering tomorrow. Continue nebs. O2 support and wean as tolerated. (4) Elevated troponin Current Visit: Yes Status: Acute Assessment and Plan: Being evaluated by cardiology. Check lipid panel as well as A1c. Started on a beta reba by myself. We will possibly benefit from aspirin and statin. (5) Hypertensive emergency Current Visit: Yes Status: Acute Assessment and Plan: Blood pressures better. Continue amlodipine 10 mg. We will add Lopressor 12.5 mg twice a day as well as hydrochlorothiazide 12.5 mg daily. (6) Sudden cardiac arrest Current Visit: Yes Status: Acute Assessment and Plan: Happened after intubation. Needed one round of epinephrine as well as CPR. Heart catheter today. Echo done showed an EF 40 to 45% with moderate to severe MR (7) DVT prophylaxis Current Visit: Yes Status: Acute Assessment and Plan: We will add heparin subcutaneous - Time Spent with Patient Total time spent is greater than 50% in coordination of care (as documented) at patient's floor/unit and/or counseling patient: Internal Medicine: Result - Labs CBC & Chem 7: 05/01/19 04:39 05/01/19 04:39 - ABG Interpretation ABG results: ABG ABG pH 7.32 pH Units (7.32-7.45) 04/30/19 12:35 ABG pCO2 56 mmHg (35-45) H D 04/30/19 12:35 ABG pO2 80 mmHg (85-104) L D 04/30/19 12:35 ABG O2 Saturation 94 % (95-98) L 04/30/19 12:35 Consult Discharge Plan - Plan Referrals: Kalyani Vidal, TAPING SUPERVISOR [Primary Care Provider] - (2) Acute exacerbation of CHF (congestive heart failure) Qualifiers: Heart failure type: combined systolic and diastolic Qualified Code(s): I50.43 - Acute on chronic combined systolic (congestive) and diastolic (congestive) heart failure
[2019-05-02] MEDS: Nicotine 21 MG PATCH.TD24 TD SCH ×2 (12:09→15:17)
[2019-05-02] MEDS ORDERED: Verapamil 5 MG/2 ML VIAL ONE (12:20)
[2019-05-02] MEDS ORDERED: ISOVUE-370 200 ML INFUS..BTL ONE (12:21)
[2019-05-02] MEDS ORDERED: Heparin 1,000 UNITS/500 mL 500 ML ONE (12:21)
[2019-05-02] MEDS ORDERED: 0.9 % Sodium Chloride 1,000 ML ONE ×2 (12:21→12:23)
[2019-05-02] MEDS ORDERED: *HR* Heparin 10,000 UNIT/10 ML VIAL ONE (12:21)
[2019-05-02] MEDS ORDERED: Nitroglycerin 1,000 MCG/10 ML VIAL IV ONE (12:22)
--- NOTE | 2019-05-02 13:07 | Pre-Sedation Evaluation ---
Pre-sedation evaluation - Pre-sedation checklist Date of procedure: 05/02/19 Procedure: left heart cath Recent Vitals: Last Vital Signs Temp 97.4 F L 05/02/19 08:30 Pulse 72 05/02/19 08:30 Resp 16 05/02/19 08:30 BP 160/109 05/02/19 08:30 Pulse Ox 92 05/02/19 08:30 H&P (including ROS) documented in medical record: Yes Previous reaction to sedatives/anesthetics: No Dietary Status: NPO after Midnight ASA Classification *see protocol: CLASS II-Mild systemic disease Plan of Care: Pt appropriate candidate for procedure/moderate/conscious sedation, Risks/benefits of procedure/sedation discussed w/ patient/family Cardiac Registry (Cardio Only) - Functional Capacity Functional Capacity: >=4 METS with symptoms - Clincal Frailty Scale Clinical Frailty Scale: Managing Well
[2019-05-02] MEDS ORDERED: *HR* Midazolam HCl 2 MG/2 ML VIAL ONE (13:10)
[2019-05-02] MEDS ORDERED: *HR* FentaNYL (PF) 100 MCG/2 ML VIAL ONE (13:10)
--- NOTE | 2019-05-02 14:05 | Invasive Diagnostic Lab Proc ---
Name: Parker Hernández Date of Study: 05/02/2019 Date: 1950 Ht: 76.0in Medical Record#: [id number] Age: 69 Wt: 143.30lb Gender: Male BSA: 1.92 Order #: [id number] BMI: 17.45 Physicians Procedure Physician: Johann Stearns MD, [facility] Referring MD: Referring MD: Staff Name Position Time In Maria VictorialázaroRachelle RN Monitor 01:03 PM Daly Forrester RT (R) Scrub 01:03 PM Dada Chetna RT (R) Scrub 01:03 PM Shivani Yuan RN Vice President Client Services 01:03 PM Procedures Performed Procedure L HRT ARTERY/VENTRICLE ANGIO PRQ CARD JENNY STENT W/ANGIO 1 VSL Pre-Procedure Checklist Informed consent is complete signed and on chart. H&P is on chart. ID band is on and ID verified with patient. Patient NPO for procedure The procedure was described for the patient and questions were answered. ECG is on chart. Plan of Care Patient will tolerate the procedure without complications. Adequate level of comfort will be maintained. Hemodynamics will remain stable Patient will recover from procedure without complications. Respiratory function will be maintained. Cardiac rhythm will remain stable. Patient temperature will be maintained. Patient and/or family have verbalized understanding of the procedure. Patient Education Chief Complaint/Reason for Test: Cardiac Cath Developmental Category: Geriatric (65+ years) Developmentally Appropriate for Age: Yes Learning Barriers: None Education Needs: Procedure Education Method: Verbal Information Taught: Cardiac Cath Educational Evaluation: Able to repeat information Intravenous Access Time IV Size Location DC'd Fluid/Drip Rate Units RN 20g 1 10/18" Patent On Arrival 0.9NaCl ml/hr Allergies No Known Allergies Vital Signs Time BP (mmHg) HR (bpm) O2 Sat. RR (bpm) LOC 01:06 PM / % 5 = Fully awake and oriented or at pre-proc level 01:06 PM / % 4 = Oriented but drowsy 01:21 PM / % 4 = Oriented but drowsy 01:08 PM 182 / 123 108 95 % 31 01:13 PM 159 / 111 102 96 % 19 01:18 PM 149 / 106 100 93 % 17 01:23 PM 104 / 74 96 95 % 19 01:28 PM 142 / 92 91 96 % 16 01:33 PM 137 / 95 82 97 % 18 01:37 PM 146 / 97 85 98 % 17 01:43 PM 151 / 102 83 99 % 18 Procedural Medications Time Medication Dose Units Method Given By 01:06 PM Oxygen 2 L/min nasal cannula Shivani Yuan RN 01:11 PM Versed 2 mg Intravenous Shivani Yuan RN 01:11 PM Fentanyl 50 mcg Intravenous Shivani Yuan RN 01:18 PM Lidocaine 2% 0.5 ml Subcutaneous Johann Stearns MD, FAC 01:20 PM Heparin 4000 units Nitroglycerin 200 mcg Verapamil 2.5 mg Intraarterial Johann Stearns MD, FACC 01:36 PM Heparin 1000 units Intravenous Shivani Yuan RN 01:46 PM Plavix 600 mg Orally Shivani Yuan RN ASA Classification: CLASS II- Mild systemic disease (i.e. well-controlled diabetes, hypertension, asthma, cigarette smoking) Bob Score Preprocedure Postprocedure Activity 2- Moves 4 extremities sustained head lift Activity 2- Moves 4 extremities sustained head lift Circulation 2- SBP +/= 20 points of pre-anesthetic level Circulation 2- SBP +/= 20 points of pre-anesthetic level Consciousness 2- Awake and alert oriented x 3 Consciousness 2- Awake and alert oriented x 3 O2 Saturation 2- Able to maintain O2 satruation of 92% on room air O2 Saturation 2- Able to maintain O2 satruation of 92% on room air Respiratory 2- Able to deep breathe and cough well Respiratory 2- Able to deep breathe and cough well Total Score 10 Total Score 10 Contrast Agent: Isovue Diagnostic Contrast: 80 ml Total Contrast: 80 ml Fluoro Dose: 12 mGy Activated Clotting Time Time Seconds to Clot 01:36 PM 252 Procedure Log Time Note Enter By 12:19 PM CathStat 01:03 PM Pt arrived to laborer salvage 2 at 13:03 scoates 01:03 PM Rachelle Lopez RN Position: Monitor Time in: 13:03 scoates 01:03 PM Daly Forrester RT (R) Position: Scrub Time in: 13:03 scoates 01:03 PM Chetna Garland RT (R) Position: Scrub Time in: 13:03 scoates 01:03 PM Shivani Yuan RN Position: Vice President Client Services Time in: 13:03 scoates 01:03 PM Patient charges- Angio tray pack, Navilyst 3mm J, Pulse Oximetry and ACIST tubing and transducer scoates 01:03 PM Physician arrived 13:03 scoates 01:03 PM Meet and greet completed scoates 01:03 PM Sign in performed according to hospital policy. Informed consent was obtained. scoates 01:03 PM Procedure start 13:03 scoates 01:06 PM ASA Class CLASS II- Mild systemic disease (i.e. well-controlled diabetes, hypertension, asthma, cigarette smoking) scoates 01:06 PM Hair removed from procedure site in procedure lab using clippers. Right wrist and Right groin prepped with Chloraprep by Shivani Yuan RN, then patient was draped. Skin intact. scoates 01:06 PM Time: 13:06 Oxygen on at 2 L/min per nasal cannula by Shivani Yuan RN scoates 01:06 PM Time: 13:06 Patient comfortable and pain free: Yes scoates 01:06 PM Time: 13:06LOC: 5 = Fully awake and oriented or at pre-proc level scoates 01:07 PM Vitals capture started with the following parameters, Patient=Adult, Interval=5 min, Initial Wampriiz=993 mmHg, Deflation Rate=3 mmHg, Cuff placed on Right Arm 01:08 PM Recorded ECG: FL=784 Condition=Condition 1 01:08 PM YC=078 bpm, DEQR=721/123 mmhg, SpO2=95.0 %, Resp=31 B/min 01:11 PM Time: 13:11 Versed 2 mg Intravenous Given by Shivani Yuan RN tsoulázaro 01:11 PM Time: 13:11 Fentanyl 50 mcg Intravenous Given [facility] 01[facility]13 PM EP=433 bpm, IHSG=264/111 mmhg, SpO2=96.0 %, Resp=19 B/min 01:15 PM Pressure channel 1 zeroed. 01:18 PM GL=139 bpm, ONPJ=635/106 mmhg, SpO2=93.0 %, Resp=17 B/min 01:18 PM Time out was performed according to hospital policy. Conscious sedation and anesthesia was achieved (see medication log with in this report above) tsoulázaro :18 PM Time: 13:18 0.5 ml Lidocaine 2% to right radial Subcutaneous Given by Johann Stearns MD, [facility] 01[facility]20 PM Access obtained by percutaneous puncture. 6Fr 10cm Terumo Glidesheath sheath placed in right Radial artery. [id number] tsoummers 01:20 PM Time: 13:20 Patient given 4,000 units Heparin, 200 mcg Nitroglycerin, and 2.5 mg Verapamil Intraarterial by Johann Stearns MD, [facility]. This is given to reduce risk of vessel spasm and thrombosis. tsoummers 01:20 PM 0.035 260cm Navilyst 3mmJ wire [id number] oumm:20 PM 5Fr TIG catheter inserted over the wire [facility] tsoumm: PM wire removed tsoummers : PM Recorded Pressure: Ao, NI=336, Condition=Condition 1 (Aorta) Ao 101/76/88 01:21 PM LCA angiography performed in multiple views. oummers : PM Time: 13:06 Patient comfortable and pain free: Yes tsoummers :21 PM Time: 13:06LOC: 4 = Oriented but drowsy tsoummers :23 PM HR=96 bpm, DTSA=782/74 mmhg, SpO2=95.0 %, Resp=19 B/min 01:23 PM RCA angiography performed in multiple views. tsoummers :23 PM Recorded Pressure: Ao, HR=95, Condition=Condition 1 (Aorta) Ao 108/80/93 01:23 PM Coronary Dominance: right tsoummers :23 PM Catheter removed tsoummers :23 PM Inflation device was opened. tsoummers :24 PM 5Fr Pigtail catheter inserted over the wire [facility] tsoumm:24 PM Catheter crossed the aortic valve and was selectively placed in the left ventricle. Pressures recorded on pullback for left heart catheterization. tsoummers 01:25 PM Pressure channel 1 zero failed. 01:25 PM Pressure channel 1 zeroed. 01:25 PM Recorded Pressure: LV, HR=93, Condition=Condition 1 (Left Ventricle) LV 136/-1/13 01:26 PM Recorded Pressure: LV, Ao, HR=92, Condition=Condition 1 (Left Ventricle) LV 138/2/14, (Aorta) Ao 139/86/108 01:26 PM Bolus angiogram of left Ventricle complete: 10 ml/sec for a total of 30 mls tsoummers :26 PM Catheter removed tsoummers 01:26 PM 6Fr JR 4 Runway guide catheter was used to cannulate the PCI vessel successfully. reused? No tsoummers :28 PM Lesion found in Mid RCA. Pre Stenosis: 95 Pre NUSRAT Flow: 3: Complete and Brisk Flow/Perfusion tsoumm 01:28 PM Right Coronary, Right Posterior Descending Arteries with Right Posterolateral and Acute Marginal branches with 95 % stenosis. If graft is supplying this area, 0 % stenosis tsoummers 01:28 PM HR=91 bpm, CPGS=041/92 mmhg, SpO2=96.0 %, Resp=16 B/min 01:28 PM Recorded Pressure: Ao, HR=96, Condition=Condition 1 (Aorta) Ao 141/94/114 01:28 PM .014 PT Graphix 182cm guide wire across target lesion- successful. reused? No tsoummers 01:29 PM 2.0 mm x 12 mm Emerge Monorail balloon across target lesion- successful. reused? No oumm:30 PM Balloon inflated @ 14 pedro lusi for 17 seconds tsoumm:31 PM Balloon catheter removed intact. tsmm 01:32 PM 3.0mm x 32mm Synergy drug-eluting stent across target lesion- successful Lot #[id number] tsoumm 01:33 PM HR=82 bpm, VSSZ=842/95 mmhg, SpO2=97.0 %, Resp=18 B/min 01:33 PM Recorded Pressure: Ao, HR=82, Condition=Condition 1 (Aorta) Ao 158/95/120 01:34 PM .014 PT Graphix 182cm guide wire across target lesion- successful. reused? No tsoummers :36 PM At 13:36 the ACT was 252 seconds. tsoumm:36 PM Time: 13:36 Heparin 1000 units Intravenous Given by Shivani Yuan RN oumm 01:36 PM Time: 13:21LOC: 4 = Oriented but drowsy oumm 01:36 PM Time: 13:21 Patient comfortable and pain free: Yes mm 01:37 PM HR=85 bpm, MVMH=496/97 mmhg, SpO2=98.0 %, Resp=17 B/min 01:37 PM Stent deployed @ 12 pedro luis for 24 seconds tsoumm:39 PM Stent delivery system removed intact. tsmmers 01:40 PM 3.0 mm x 15mm NC Trek Rx balloon across target lesion- successful. reused? No oumm 01:40 PM Balloon inflated @ 18 pedro luis for 23 seconds tsoumm 01:40 PM Balloon catheter removed intact. tsmm 01:41 PM Guide wires removed intact. tsoumm 01:41 PM Guide catheter removed intact. tsoumm 01:43 PM HR=83 bpm, PEGP=078/102 mmhg, SpO2=99.0 %, Resp=18 B/min 01:43 PM Procedure completed at 13:43 05/02/2019 tsoumm 01:43 PM Did you address NUSRAT flow and Dominance? YesCoronary Dominance: right mm 01:44 PM Sign out completed: Radiation Dose 93.09 mGy, 11.8 Gy/cm2 Fluoro Time: 6.1 Isovue 370 - 200ml contrast 80 ml given by Johann Stearns MD, [facility]. Complications: None. The patient was discharged out of the industrial laborer in stable condition. Sedation minutes 33. Cardiac Rehab Consult needed: Yes. Confirmed administered medications: Yes mm 01:44 PM Isovue 370 - 200ml,1 Bottle(s) used. tsoumm 01:44 PM Arterial sheath pulled, Vasc Band closure device used and was Successful S/N. oumm 01:44 PM 11 ml air in Vasc Band. tsoumm 01:44 PM Estimated Blood Loss: less than 20cc tsoummers 01:44 PM Post ECG NSR tsoummers 01:44 PM Post Blood Pressure 146/97 tsoummers 01:44 PM 13:44 Post Pulses Rt Radial 1+ tsoummers 01:45 PM Information taught Cardiac Cath, PCI, and Vasc Band tsoummers 01:45 PM Education needs Procedure, Plan of Care, and Responsibilities of Patient in Care tsoummers 01:45 PM Learning barriers :None tsoummers 01:45 PM Education Methods Verbal tsoummers 01:45 PM Education evaluation Able to repeat information tsoumm 01:45 PM Site status No bleeding/ No Hematoma - Rt Wrist as reported by Daly Forrester RT (R) at 13:45 tsoummers 01:46 PM Plavix, Effient or Brilinta given Yes tsoummers 01:46 PM Delay to floor No oumm 01:46 PM Family placed in consult room. quintin 01:46 PM Time: 13:46 Plavix 600 mg Orally Given by Shivani Yuan RN lázaro 01:48 PM Patient out of room: 13:48 oummquintin 01:52 PM Lesion found in Proximal Circumflex. Pre Stenosis: 60 Pre NUSRAT Flow: 01:52 PM Circumflex, Obtuse Marginal, Left Posterior Descending, and Left Posterolateral Coronary Arteries with 60 % stenosis. If graft is supplying this area, 0 % stenosis 01:52 PM Lesion found in Proximal LAD. Pre Stenosis: 30 Pre NUSRAT Flow: mmquintin 01:52 PM Proximal Left Anterior Descending Coronary Artery with 30% stenosis. If graft is supplying this territory, 0 % stenosis. 01:54 PM Report given to Raquel ALEMAN Pt taken to 2NE Room #16. 13:53 lázaro Complications Complication None Hemodynamics Pressures Site Systolic/A Wave Diastolic/V Wave Mean AO 101 76 88 AO 108 80 93 LV 136 -1 13 LV 138 2 14 AO 139 86 108 AO 141 94 114 AO 158 95 120 Post Procedure Information Blood Pressure: 146/97 mmHg Rhythm: NSR Post procedural instructions were given Closure Device Time Device Success/Fail 05/02/2019 1:48:00 PM Mechanical Compression Successful Site Checks Time Location Status Staff Sheath In? Note 01:45 PM Rt Wrist No bleeding/ No Hematoma Daly Forrester RT (R) Pulses Time Site Pre-Procedure Post-Procedure Note Bilateral DP & PT 2+ Bilateral radial 2+ 1:44:00 PM Rt Radial 1+ Updated by Yuly Tse RN on 05/02/2019 1:56:04 PM electronically signed on 05/02/2019 1:56:36 PM with status of Final
[2019-05-02] MEDS ORDERED: Ondansetron 4 MG/2 ML VIAL IVP PRN (14:25)
[2019-05-02] MEDS ORDERED: Aspirin 81 MG TAB.CHEW PO STA (14:28)
[2019-05-02] MEDS: *HR* Heparin 5,000 UNIT/ML VIAL SQ SCH ×2 (15:18→20:50)
--- NOTE | 2019-05-02 15:50 | Event Note ---
Date of Encounter: 05/02/19 Time of Encounter: 15:00 - Cardiology Event Note LHC PCI prelim Transradial PCI RCA JENNY x 1 Otherwise no severe disease Normal EF
--- NOTE | 2019-05-02 23:45 | Electrocardiograph Report ---
[facility] Test Date: 2019-04-30 Pat Name: Parker Hernández Department: EXAM8 Room: 2NE16 Gender: M Alterations Supervisor: : 1950 Requested By: [id number] Order Number: [id number] Reading MD: Flash Ellis Measurements Intervals [place] Rate: 136 P: 102 IL: 141 QRS: 136 QRSD: 84 T: 71 QT: 265 QTc: 399 Interpretive Statements Right and left arm electrode reversal, interpretation assumes no reversal Sinus tachycardia LAE, consider biatrial enlargement Probable lateral infarct, age indeterminate Electronically Signed On 05-02-2019 23:43:41 EDT by Flash Ellis
--- NOTE | 2019-05-02 23:47 | Electrocardiograph Report ---
[facility] Test Date: 2019-04-30 Pat Name: Parker Hernández Department: TRAUMA2 Room: 2NE16 Gender: M Crystal Grower: : 1950 Requested By: Jair Alexander Order Number: [id number] Reading MD: Flash Ellis Measurements Intervals [place] Rate: 52 P: 63 MS: 194 QRS: 64 QRSD: 105 T: 79 QT: 473 QTc: 440 Interpretive Statements Sinus rhythm Repol abnrm suggests ischemia, anterolateral Electronically Signed On 05-02-2019 23:45:24 EDT by Flash Ellis
[2019-05-03] MEDS: Acetaminophen 325 MG TABLET PO PRN (00:35)
[2019-05-03] MEDS: *HR* Heparin 5,000 UNIT/ML VIAL SQ SCH (06:27)
[2019-05-03 07:10] LABS: Basophils % 0.2 %; Hematocrit 43.7 % (37.5-50.1); Hemoglobin 14.3 g/dL (12.9-16.9); Immature Granulocytes % 0.4 % (0-4); Lymphocytes # 1.1 K/mcL (0.6-4.6); Lymphocytes % 22.7 %; Mean Corpuscular HGB Conc 32.7 g/dL (31.6-35.5); Mean Corpuscular Hemoglobin 28.8 pg (28.0-33.3); Mean Corpuscular Volume 88.1 fL (83.0-100.0); Mean Platelet Volume 9.9 fL (9.4-12.4); Monocytes # 0.6 K/mcL (0.0-1.3); Monocytes % 11.8 %; Platelet Count 234 K/mcL (140-400); Red Blood Count 4.96 M/mcL (4.19-5.50); Red Cell Distribution Width 13.8 % (11.5-14.5); Segmented Neutrophils % 64.9 %; White Blood Count 4.7 K/mcL (4.3-11.1)
[2019-05-03 07:25] LABS: Estimated Average Glucose 108 mg/dl
[2019-05-03 07:30] LABS: BUN/Creatinine Ratio 19 (6-26); Blood Urea Nitrogen 17 mg/dL (8-23); Calcium 8.9 mg/dL (8.6-10.3); Carbon Dioxide 29 mEq/L (23-29); Chloride 94 mEq/L (98-107); Chol/HDL Ratio 3.3 (0-4.9); Cholesterol 243 mg/dL (< 200); Glucose 86 mg/dL (70-105); HDL Cholesterol 74 mg/dL (40-59); LDL Cholesterol,Calculated 141 mg/dL (0-99); Magnesium 1.8 mg/dL (1.6-2.6); Potassium 3.9 mEq/L (3.5-5.1); Triglycerides 139 mg/dL (< 150); eGFR For African Americans > 60 (> 60); eGFR For Non-African Americans > 60 (> 60)
[2019-05-03] MEDS: Budesonide/Formoterol 160/4.5 1 PUFF INH IH SCH (07:33)
[2019-05-03 07:46] LABS: Osmolality,Calculated 275 (280-300); Sodium 132 mEq/L (136-145)
[2019-05-03] MEDS: Furosemide 20 MG TABLET PO SCH (09:21)
[2019-05-03] MEDS: predniSONE 20 MG TABLET PO SCH (09:22)
[2019-05-03] MEDS: amLODIPine 5 MG TABLET PO SCH (09:22)
[2019-05-03] MEDS: Nicotine 21 MG PATCH.TD24 TD SCH (09:24)
--- NOTE | 2019-05-03 09:31 | Cardiology Progress Note ---
Date of Encounter: 05/03/19 Time of Encounter: 09:26 Assessment and Plan (1) Sudden cardiac arrest Current Visit: Yes Status: Acute Witnessed cardiac arrest that occurred after intubation for respiratory distress with severe acidosis. PEA per report. Patient initially presented with shortness of breath with hypoxia. Troponin elevation peaked at 0.10. Echo revealed reduced EF at 40-45% and moderate to severe MR. LHC was recommended. Patient received PCI to the RCA. No severe disease otherwise. No complications overnight. No complications from procedure. Importance of Plavix and aspirin and interrupted for a minimum 1 year reviewed with patient. He voiced understanding. Outpatient cardiology follow-up will be coordinated. Cardiac rehabilitation ordered. (2) CAD (coronary artery disease) Current Visit: Yes Status: Acute Status post JENNY to the RCA. Continue Lasix and aspirin uninterrupted for a minimum of 1 year. Start statin and change beta reba to toprol xl. Qualifiers: Coronary Disease-Associated Artery/Lesion type: [place] artery [place] vs. transplanted heart: [place] heart Associated angina: without angina Qualified Code(s): I25.10 - Atherosclerotic heart disease of [place] coronary artery without angina pectoris (3) Mitral regurgitation Current Visit: Yes Status: Acute Moderate to severe MR. Likely ischemic. S/p PCI. Qualifiers: Cardiac valve disease etiology: nonrheumatic Qualified Code(s): I34.0 - Nonrheumatic mitral (valve) insufficiency (4) Acute exacerbation of CHF (congestive heart failure) Current Visit: Yes Status: Acute Acute systolic CHF on admission. EF 40-45% with moderate to severe MR. Patient was given IV diuresis with improvement. Initially intubated and now extubated and on room air. Patient is laying flat with no complication. Appears euvolemic on exam. Change metoprolol tartrate to metoprolol succinate. Start RHONDA inhibitor. Low-sodium diet and strict I&O's. CHF education given. 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 All questions were answered. Thank you for involving us in the care of your patient. Please call with any questions. Subjective Principal diagnosis: Cardiac arrest Interval history: Mr. Hernández is resting quietly in bed. He denies chest pain. Denies shortness of breath. Denies problems with his right radial access site. Objective Vital Signs, Last 4 Hours Temp Pulse Resp BP Pulse Ox 05/03/19 07:34 16 96 05/03/19 06:53 98.3 F 93 12 164/110 96 General: Conversant, No Apparent Distress HEENT: Atraumatic, Normocephaly, Mucus Membranes Moist Neck: No JVD, Normal carotid pulses Cardiac: Reg Rate and Rhythm, Normal S1 and S2, No Murmur Lungs: Normal Breath Sounds, No Wheeze, Rales, Rhonchi Neuro: Alert and responsive, No focal deficits noted Abdomen: Soft, Non-Tender Skin: No rashes noted on visualized skin Musculoskeletal: No Chest Wall Tenderness Extremities: No Clubbing, No Cyanosis, No Edema, Normal Pulses, Other (Dressing dry and intact on the right radial access site. Good pulses. No hematoma.) Results 05/03/19 06:44 05/03/19 06:44 Lab Results 05/03/19 05/03/19 06:44 06:44 WBC 4.7 Hgb 14.3 Hct 43.7 Plt Count 234 Sodium 132 L Potassium 3.9 Chloride 94 L Carbon Dioxide 29 BUN 17 Creatinine 0.88 Glucose 86 Calcium 8.9 Magnesium 1.8 - Imaging and Cardiology Echo: report reviewed - EKG Interpretation EKG results cardiology: personally reviewed Consult Discharge Plan - Plan Referrals: Kalyani Vidal, LASER TECHNICIAN [Primary Care Provider] -
[2019-05-03] MEDS ORDERED: Aspirin 81 MG TAB.CHEW PO SCH (10:10)
--- NOTE | 2019-05-03 10:14 | Discharge Summary ---
Orders not resulted at time of discharge: Pending orders 04/30/19 09:33 Culture,Blood [BC] Stat 05/01/19 06:00 ECG 12 lead ECG [ECG] AM 0600 05/02/19 10:23 CL Cardiac Catheterization [CL] Routine 05/02/19 14:25 ECG 12 lead ECG [ECG] Stat 05/03/19 06:00 ECG 12 lead ECG [ECG] AM 0600 Date of Encounter: 05/03/19 Time of Encounter: 10:11 - Discharge Diagnosis (1) Acute respiratory failure with hypoxia and hypercapnia Priority: Primary Status: Acute (2) Acute exacerbation of CHF (congestive heart failure) Priority: Primary Status: Acute Qualifiers: Heart failure type: combined systolic and diastolic Qualified Code(s): I50.43 - Acute on chronic combined systolic (congestive) and diastolic (congestive) heart failure (3) COPD exacerbation Priority: Primary Status: Acute (4) Elevated troponin Priority: Primary Status: Acute (5) Hypertensive emergency Priority: Primary Status: Acute (6) Sudden cardiac arrest Priority: Primary Status: Acute Hospital course: Mr. Hernández is a 69 year old male who presented to the ED today with the complaint of dyspnea. He has a PMHx of asthma and TIA. On arrival he was found to be in severe respiratory distress and his initial BP was 224/160. The patient had a trial of BiPAP to help with his respiratory distress but ABG showed significant acidosis with hypoxia and hypercarbia and it was felt that BiPAP would not completely correct his degree of respiratory distress. The patient was then intubated without any significant difficulties. Shortly after intubation the patient became bradycardic and subsequently lost pulses. One round of CPR was performed with epinephrine given and once this round had stopped the patient had pulses again. Chest x-ray demonstrated severe pulmonary edema. Other significant labs include a BNP of 1071. The patient was diuresed and put on IV steroids. Eventually extubated. Was put on Cardene drip and eventually switched to PO meds. Patient was noted to have an EF of 40-45% with moderate to severe mitral regurgitation. Had elevated troponins. Seen by Cardiology and underwent a LHC and PCI done to RCA. Discharged on multiple new meds including DAPT, BB, lisinopril, lasix, amlodipine, statin. Discharged 05/03/19 - Time Spent with Patient Total time spent providing and/or coordinating discharge services: Time spent: Greater than 30 minutes - Discharge Medications Prescriptions: New Aspirin [Adult Aspirin] 81 mg PO DAILY #30 tablet. Furosemide [Lasix] 20 mg PO DAILY #30 tablet Atorvastatin [Lipitor] 80 mg PO HS 30 Days tablet amLODIPine [Norvasc] 10 mg PO DAILY #30 tablet Clopidogrel [Plavix] 75 mg PO DAILY #30 tablet predniSONE [PredniSONE] 10 mg PO TAPER #18 tablet Budesonide/Formoterol 160/4.5 [Symbicort 160/4.5] 2 puff IH BIDR 30 Days inh Metoprolol XL (24 HR) Succ [Toprol Xl] 25 mg PO DAILY #30 tab.er.24h Lisinopril [Zestril] 2.5 mg PO DAILY 30 Days tablet Home Medications: Aspirin [Adult Aspirin] 81 mg PO DAILY #30 tablet. 05/03/19 [Rx] Atorvastatin [Lipitor] 80 mg PO HS 30 Days tablet 05/03/19 [Rx] Budesonide/Formoterol 160/4.5 [Symbicort 160/4.5] 2 puff IH BIDR 30 Days inh 05/03/19 [Rx] Clopidogrel [Plavix] 75 mg PO DAILY #30 tablet 05/03/19 [Rx] Furosemide [Lasix] 20 mg PO DAILY #30 tablet 05/03/19 [Rx] Lisinopril [Zestril] 2.5 mg PO DAILY 30 Days tablet 05/03/19 [Rx] Metoprolol XL (24 HR) Succ [Toprol Xl] 25 mg PO DAILY #30 tab.er.24h 05/03/19 [Rx] amLODIPine [Norvasc] 10 mg PO DAILY #30 tablet 05/03/19 [Rx] predniSONE [PredniSONE] 10 mg PO TAPER #18 tablet 05/03/19 [Rx] Allergies/Adverse Reactions: Allergy/AdvReac Type Severity Reaction Status Date / Time No Known Allergies Allergy Verified 05/01/19 08:11 Date of admission: 04/30/19 10:48 Primary care physician: Kalyani Vidal CNP Consults: 05/01/19 10:28 Consult to Cardiology [CONS] Routine Comment: Consulting Provider: Cardiology Shelly Reason for Consult: chf, echo with decreased EF and MR Call Completed: No 05/02/19 14:25 Consult to Cardiac Rehabilitation-Phase1 [CONS] Routine Comment: Reason for Consult: post op PCI Call Completed: Yes - Constitutional Vitals: Temp Pulse Resp BP Pulse Ox 98.3 F 99 16 133/91 96 05/03/19 06:53 05/03/19 09:29 05/03/19 07:34 05/03/19 09:29 05/03/19 07:34 Exam: GEN: NAD CVS: RRR. S1, S2, No m/r/g RESP: CTAB ABD: Soft, NT, ND, +BS EXT: No edema. 2+ DP. No rashes NEURO: Nonfocal - Patient Status Disposition: Home, Self-Care Condition: Critical Overall status at discharge: patient is progressing back to baseline - Discharge Instructions Follow Up With: Kalyani Vidal CNP [Primary Care Provider] - Johann Stearns MD [Partnered Physician] - (2 weeks) - Diet and Activity Activity: increase activity as tolerated Diet: low salt diet
[2019-05-03] MEDS ORDERED: hydroCHLOROthiazide 25 MG TABLET PO SCH (10:18)
[2019-05-03 14:43] VITALS: BP 150/108
[2019-05-04] MEDS ORDERED: Metoprolol XL (24 HR) Succ 25 MG TAB.ER.24H PO SCH (09:00)
--- NOTE | 2019-05-05 10:47 | Electrocardiograph Report ---
[address] [address] Test Date: 2019-05-03 Pat Name: Parekr Hernández Department: 111 Room: 2NE16 Gender: M Accounts Payable Lead: : 1950 Requested By: Johann Stearns Order Number: [id number] Reading MD: Johann Stearns Measurements Intervals [place] Rate: 82 P: -1 OR: 145 QRS: 23 QRSD: 89 T: 50 QT: 389 QTc: 427 Interpretive Statements SINUS RHYTHM MINIMAL VOLTAGE CRITERIA FOR LVH Electronically Signed On 05-05-2019 10:45:52 EDT by Johann Stearns
== END 2019-05-03 15:08 | disposition home or self-care (01) | DRG 208 ==
LOC: EMEROOARM 09:26 → SUATTDRO 10:48 → ICNU 10:48 → 2NENU 05-01 14:49
PROVIDERS: ADMIT Internal Medicine Pulmonary Disease; ATTEND Internal Medicine

== ENCOUNTER 2021-01-29 20:53 | Inpatient (IN) ==
[2021-01-29] MEDS ORDERED: 0.9 % Sodium Chloride 1,000 ML ONE (21:13)
[2021-01-29] MEDS ORDERED: Aspirin 81 MG TAB.CHEW ONE (21:13)
[2021-01-29] MEDS ORDERED: *HR* Ticagrelor 90 MG TABLET ONE (21:13)
[2021-01-29] MEDS ORDERED: *HR* Heparin 5,000 UNIT/ML VIAL ONE (21:13)
[2021-01-29] MEDS ORDERED: Ipratropium/Albuterol Neb 3 ML IH ONE (21:19)
[2021-01-29] MEDS ORDERED: Aspirin 81 MG TAB.CHEW PO STA (21:22)
[2021-01-29] MEDS ORDERED: 0.9 % Sodium Chloride 1,000 ML IVC ONE (21:23)
[2021-01-29] MEDS ORDERED: *HR* Ticagrelor 90 MG TABLET PO ONE (21:23)
[2021-01-29] MEDS ORDERED: *HR* Heparin 5,000 UNIT/ML VIAL IVP PRN ×2 (21:24)
[2021-01-29] MEDS ORDERED: *HR* Heparin 5,000 UNIT/ML VIAL IVP ONE (21:24)
[2021-01-29] MEDS ORDERED: Heparin 25,000UNIT/250ML 1/2NS 25,000 UNIT/250 ML IV.SOLN IVC SCH (21:30)
[2021-01-29] MEDS ORDERED: 0.9 % Sodium Chloride 2,000 ML ONE (21:39)
[2021-01-29] MEDS ORDERED: Nitroglycerin 1,000 MCG/5 ML VIAL IV ONE (21:39)
[2021-01-29] MEDS ORDERED: Heparin 1,000 UNITS/500 mL 500 ML ONE (21:39)
[2021-01-29] MEDS ORDERED: ISOVUE-370 200 ML INFUS..BTL ONE (21:39)
[2021-01-29] MEDS ORDERED: *HR* Heparin 10,000 UNIT/10 ML VIAL ONE ×2 (21:39→21:52)
[2021-01-29 21:40] LABS: Hematocrit 38.7 % (37.5-50.1); Hemoglobin 12.1 g/dL (12.9-16.9); Immature Granulocytes % 0.9 % (0-4); Lymphocytes # 0.6 K/mcL (0.6-4.6); Lymphocytes % 7.2 %; Mean Corpuscular HGB Conc 31.3 g/dL (31.6-35.5); Mean Corpuscular Hemoglobin 28.9 pg (28.0-33.3); Mean Corpuscular Volume 92.6 fL (83.0-100.0); Mean Platelet Volume 9.9 fL (9.4-12.4); Monocytes # 0.6 K/mcL (0.0-1.3); Monocytes % 7.1 %; Nucleated Red Blood Cells 0.2 /100 WBC (0); Platelet Count 234 K/mcL (140-400); Red Blood Count 4.18 M/mcL (4.19-5.50); Segmented Neutrophils % 84.8 %; White Blood Count 8.2 K/mcL (4.3-11.1)
[2021-01-29 21:48] LABS: Prothrombin Time 11.2 Seconds (9.4-12.1)
[2021-01-29 21:51] LABS: Heparin anti-factor XA UFH < 0.04 IU/mL (0.30-0.70)
[2021-01-29] MEDS ORDERED: *HR* Midazolam HCl 2 MG/2 ML VIAL ONE (21:55)
[2021-01-29] MEDS ORDERED: *HR* FentaNYL (PF) 100 MCG/2 ML VIAL ONE (21:55)
[2021-01-29 21:56] LABS: BUN/Creatinine Ratio 20 (6-26); Blood Urea Nitrogen 53 mg/dL (8-23); Calcium 8.9 mg/dL (8.6-10.3); Carbon Dioxide 17 mEq/L (23-29); Chloride 92 mEq/L (98-107); Glucose 137 mg/dL (70-105); Magnesium 2.3 mg/dL (1.6-2.6); Osmolality,Calculated 287 (280-300); Potassium 4.6 mEq/L (3.5-5.1); Sodium 130 mEq/L (136-145); eGFR For African Americans 29 (> 60); eGFR For Non-African Americans 24 (> 60)
[2021-01-29 22:02] LABS: Troponin I > 73.00 ng/mL (< 0.04)
[2021-01-29] MEDS ORDERED: Perflutren Lipid Microsphere 1.3 ML in 0.9 % Sodium Chloride 8.7 ML IVP PRN (22:27)
[2021-01-29] MEDS ORDERED: Azithromycin 500 MG in 0.9 % Sodium Chloride 250 ML IVPB ONE (23:58)
[2021-01-29] MEDS ORDERED: cefTRIAXone 1,000 MG in Water for inj. (sterile) 10 ML IVP ONE (23:58)
[2021-01-30] MEDS ORDERED: Melatonin 3 MG TABLET PO PRN (01:12)
[2021-01-30] MEDS ORDERED: Naloxone 0.4 MG/ML INJ IVP PRN (01:12)
[2021-01-30] MEDS ORDERED: *HR* Promethazine 25 MG/ML VIAL IM PRN (01:12)
[2021-01-30] MEDS ORDERED: Ondansetron 4 MG/2 ML VIAL IVP PRN (01:12)
[2021-01-30] MEDS ORDERED: Acetaminophen 325 MG TABLET PO PRN (01:12)
[2021-01-30] MEDS ORDERED: *HR* LORazepam 2 MG/ML VIAL IVP PRN ×3 (01:18)
[2021-01-30] MEDS ORDERED: *HR* Dextrose 50 % in Water (Vial) 50 ML VIAL ONE (01:34)
[2021-01-30] MEDS ORDERED: *HR* Dextrose 50 % in Water (Vial) 50 ML VIAL IVP ONE (01:45)
[2021-01-30] MEDS ORDERED: EPINEPHrine 1 MG/ML VIAL IV ONE (02:49)
[2021-01-30] MEDS ORDERED: *HR* Amiodarone 150 MG/3 ML VIAL IVPB ONE (02:49)
[2021-01-30] MEDS ORDERED: *HR* EPINEPHrine 1 MG/10 ML SYRINGE IVP ONE (02:49)
[2021-01-30 05:09] VITALS: BP 101/77
[2021-01-30] MEDS ORDERED: Thiamine (B-1) 100 MG TABLET PO SCH (09:00)
[2021-01-30] MEDS ORDERED: Folic Acid 1 MG TABLET PO SCH (09:00)
[2021-01-30] MEDS ORDERED: Vitamin B Complex/Vit C/Vit E 1 EACH TABLET PO SCH (09:00)
[2021-01-30] MEDS ORDERED: Aspirin Enteric Coated 81 MG Tablet PO SCH (09:00)
== END 2021-01-30 02:50 | disposition expired ==
LOC: EMEROOARM 20:53 → 2NNU 20:53 → ICNU 01-30 01:41
PROVIDERS: ADMIT Internal Medicine; ATTEND Internal Medicine